=== PATIENT | male | born 1990 | race Caucasian/White ===

== ENCOUNTER 2018-06-14 07:44 | Emergency (ER) | payer OTHER ==
[~2018-06-14] VITALS: Ht 175.3 cm; Wt 65.5 kg
[2018-06-14] MEDS ORDERED: OXYcodone/APAP 5/325MG TABLET PO ONE (08:30)
[2018-06-14] MEDS ORDERED: OXYcodone/APAP 5/325MG TABLET ONE (08:41)
[2018-06-14 08:58] LABS: MICROSCOPIC NOT IND
[2018-06-14] MEDS ORDERED: HYDR-3245 PO (09:00)
[2018-06-14 09:03] LABS: CULTURE INDICATED? NO
[2018-06-14 09:14] VITALS: BP 112/79
== END 2018-06-14 09:30 | disposition home or self-care (01) ==
LOC: ED 08:55
DX: R07.89 Other chest pain (principal); G89.29 Other chronic pain; M54.9 Dorsalgia, unspecified
CPT/HCPCS: 81003; 99285